=== PATIENT | female | born 2000 | race Two or more races ===

== ENCOUNTER 2020-09-17 20:55 | Emergency (ER) | payer MEDICAID ==
[~2020-09-17] VITALS: Ht 165.1 cm; Wt 77.1 kg
[2020-09-18] MEDS ORDERED: ACETAMINOPHEN 325 MG TAB PO ONE ×2 (00:30→00:45)
[2020-09-18 00:34] VITALS: BP 111/70
== END 2020-09-18 01:14 | disposition home or self-care (01) ==
LOC: ER 20:57
DX: H60.92 Unspecified otitis externa, left ear (principal); H61.22 Impacted cerumen, left ear

== ENCOUNTER 2021-10-16 14:26 | Emergency (ER) | payer MEDICAID ==
[~2021-10-16] VITALS: Ht 162.6 cm; Wt 77.1 kg
[2021-10-16] MEDS ORDERED: ONDANSETRON ODT 4 MG TAB PO ONE (15:15)
[2021-10-16] MEDS ORDERED: ACETAMINOPHEN/CODEINE#3 (300/30mg) TAB PO ONE (15:15)
[2021-10-16 17:54] VITALS: BP 121/79
[2021-10-16] MEDS ORDERED: ACE3T PO (18:24)
[2021-10-16] MEDS ORDERED: IBUP800T27 PO (18:24)
== END 2021-10-16 18:45 | disposition home or self-care (01) ==
LOC: ER 14:26
DX: S52.124A Nondisplaced fracture of head of right radius, initial encounter for closed fracture (principal); W01.0XXA Fall on same level from slipping, tripping and stumbling without subsequent striking against object, initial encounter; Y93.89 Activity, other specified; Y92.89 Other specified places as the place of occurrence of the external cause; Y99.8 Other external cause status
CPT/HCPCS: 29105; 73080; 73110; 99284; Q0162

== ENCOUNTER 2025-06-14 04:58 | Emergency (ER) | payer MEDICAID ==
[~2025-06-14] VITALS: Ht 162.6 cm; Wt 110.5 kg
[~2025-06-14 04:58] MED LIST: ACE3T PO; IBUP-1456 PO
[2025-06-14] MEDS ORDERED: ACET500T58 PO (05:25)
--- NOTE | 2025-06-14 05:26 | ED.PDOC ---
Musculoskeletal HPI Comments 25 year old female presents to ER with complaints of chest wall pain x 2 days. 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 Denies use of medications for current symptoms and states her pain is worse with movement and better with rest. Denies shortness of breath, n/v, skin changes or any further symptoms/complaints Chief Complaint: Upper Extremity Time Seen by MD: 05:07 Primary Care Provider: UNKNOWN Reviewed Notes: Nurses Notes, Medications, Allergies Allergies: Coded Allergies: NO KNOWN ALLERGIES (Unverified , 10/16/21) Home Meds Active Scripts Acetaminophen (Acetaminophen) 500 Mg Tab, 500 MG PO Q4HPRN, #30 TAB 0 Refills Prov:ABHAY HERMAN 06/14/25 Acetaminophen W/ Codeine (Tylenol W/Cod #3) 1 Tab Tb, 1 TAB PO QIDP, #10 TAB 0 Refills Prov:ABHAY HERMAN 10/16/21 Ibuprofen (Ibuprofen) 800 Mg Tab, 1 TAB PO TID PRN, #30 TAB 0 Refills Prov:ABHAY HERMAN 10/16/21 Information Source: Patient Mode of Arrival: Ambulatory Past Medical History PAST MEDICAL HISTORY: Denies Surgical History: Denies all surgeries NURSE STAFF History: Denies all NURSE STAFF Hx Family History Family History: Unknown Social History Smoker: Non-Smoker Alcohol: Denies ETOH Use Drugs: Denies Drug Use Lives In: Home Constitutional: denies: chills, diaphoresis, fatigue, fever, malaise, sweats, weakness, others EENTM: denies: blurred vision, double vision, ear bleeding, ear discharge, ear drainage, ear pain, ear ringing, eye pain, eye redness, hearing loss, mouth pain, mouth swelling, nasal discharge, nose bleeding, nose congestion, nose pain, photophobia, tearing, throat pain, throat swelling, voice changes, others Respiratory: denies: cough, hemoptysis, orthopnea, SOB at rest, shortness of breath, SOB with excertion, stridor, wheezing, others Cardiovascular: reports: others (As stated in HPI) Gastrointestinal: denies: abdomen distended, abdominal pain, blood streaked bowels, constipated, diarrhea, dysphagia, difficulty swallowing, hematemesis, melena, nausea, poor appetite, poor fluid intake, rectal bleeding, rectal pain, vomiting, others Genitourinary: denies: abnormal vagina bleeding, burning, dyspareunia, dysuria, flank pain, frequency, hematuria, incontinence, pain, , vagina discharge, urgency, others Neurological: denies: dizziness, fainting, headache, left sided numbness, left sided weakness, numbness, paresthesia, pre-existing deficit, right sided numbness, right sided weakness, seizure, speech problems, tingling, tremors, weakness, others Musculoskeletal: denies: back pain, gout, joint pain, joint swelling, muscle pain, muscle stiffness, neck pain, others Integumetry: denies: bruises, change in color, change in hair/nails, dryness, laceration, lesions, lumps, rash, wounds, others Allergic/Immunocompromised: denies: Difficulty Healing, Frequent Infections, Hives, Itching, others Hematologic/Lymphatic: denies: anemia, blood clots, easy bleeding, easy bruising, swollen glands, others Endocrine: denies: excessive hunger, excessive sweating, excessive thirst, excessive urination, flushing, intolerance to cold, intolerance to heat, unexplained weight gain, unexplained weight loss, others Psychiatric: denies: anxiety, bipolar disorder, depression, hopeless, panic disorder, schizophrenia, sleepless, suicidal, others Physical Exam General Appearance: No Apparent Distress, Obese HEENT: PERRL/EOMI Neck: Full Range of Motion, Non-Tender, Normal Respiratory: Lungs Clear, No Accessory Muscle Use, No Respiratory Distress, Normal Breath Sounds, Other (TTP to right upper chest wall noted. No skin changes noted) Cardiovascular: No Murmur, No Gallop, Regular Rate/Rhythm Breast Exam: Deferred Gastrointestinal: NOT DONE Genitalia: Deferred Pelvic: Deferred Rectal: Deferred Extremities: Normal capillary refill, Normal range of motion Neurologic: Alert, No Motor Deficits, Normal Affect, Normal Mood, No Sensory Deficits Cerebellar Function: Normal Reflexes: Normal Skin: Dry, Normal Color, Warm Peripheral Pulses: 2+ Radial (R), 2+ Radial (L), 2+ Brachial (R), 2+ Brachial (L) Lymphatic: No Adenopathy Was a procedure done? Was a procedure done?: No Sedation Sedation?: No EKG EKG : Pulse Rate (adult): 62 [place]: Normal Cardiac Rhythm: NSR (SR) Block: None Hypertrophy: None ST: Normal Differential Diagnosis EXT Differential Diagnosis: Fracture, Neurovascular injury, Other (PR) X-Ray, Labs, Meds, VS Vital Signs Date Time Temp Pulse Resp B/P (MAP) Pulse Ox O2 Delivery O2 Flow Rate FiO2 06/14/25 05:29 98.9 64 20 114/71 (85) 98 98.9 06/14/25 05:29 64 06/14/25 05:26 62 06/14/25 05:11 62 06/14/25 05:00 98.9 64 20 114/71 98 98.9 PATIENT: MARGARITA MOREIRACT: [id number]: [id number] : 2000 LOC: ER ROOM / BED: / AGE / SEX: 25 / F ADM STATUS: REG ER SERVICE 5 ORDERING PHYSICIAN: ABHAY HERMAN PROCEDURE(s): CXR2 - CHEST TWO VIEWS ROUTINE REASON: right chest wall pain ORDER NUMBER(s): [id number], ACCESSION NUMBER(s): [id number] CHEST RADIOGRAPH Indication: right chest wall pain Technique: Frontal and lateral view of the chest was obtained Comparison: None FINDINGS: Lines and Tubes: None Lungs: Clear Pleura: No effusion. No pneumothorax. Cardiomediastinal contours: Unremarkable Bones: Unremarkable IMPRESSION: No evidence of acute disease. ATED BY: FARHAT MCCULLOUGH MD DICTATED DATE/TIME: 06/14/25540 SIGNED BY: FARHAT MCCULLOUGH MD SIGNED DATE/TIME: 06/14/25540 CC: waiver signed EKG reviewed Chest x-ray reviewed Patient had improvement in symptoms and in no distress prior to discharge Advised on rest/no strenuous activity Advised to follow up with PCP in 1-2 days Patient verbalized understanding and agreeable with current plan of care Advised to return to ER immediately if symptoms worsen Images Reviewed?: Images reviewed and evaluated by me Time of 1ST Reevaluation: 05:07 Reevaluation 1ST: N/A Patient Education/Counseling: Diagnosis, Treatment, Prognosis, Need For Follow Up Family Education/Counseling: No Family Present Departure 1 Departure Time of Disposition: 05:23 Impression: Primary Impression: Muscle strain of chest wall Qualified Codes: S29.011A - Strain of muscle and tendon of front wall of thorax, initial encounter Disposition: HOME / SELF CARE / HOMELESS Condition: Stable e-Prescriptions Acetaminophen (Acetaminophen) 500 Mg Tab 500 MG PO Q4HPRN, #30 TAB 0 Refills Prov: ABHAY HERMAN 06/14/25 Discharged With: Self Critical Care Note Critical Care Time?: No Stability Stability form required: No Heart Score Heart Score: Heart Score Response (Comments) Value History N/A 0 EKG N/A 0 Age N/A 0 Risk Factors N/A 0 Troponin N/A 0 Total 0 ABHAY HERMAN Jun 14, 2025 05:26
[2025-06-14 05:29] VITALS: BP 114/71; PULSE 64; RESP 20; TEMP 98.9; O2SAT 98
--- NOTE | 2025-06-14 05:30 | ECG ---
[facility] Test Date: 2025-06-14 Test Time: 05:11:54 Pat Name: ABIODUN MOREIRA Department: ED Room: Gender: F [employer]oth Stock Sorter: ROSIE : 2000 Requested By: EMERGENCY EMERGENCY Order Number: [id number] Reading MD: Isai Horton Measurements Intervals [place] Rate: 62 P: 41 OH: 125 QRS: 48 QRSD: 102 T: 18 QT: 405 QTc: 412 Interpretive Statements Sinus rhythm Electronically Signed On 06-14-2025 17:51:03 PST by Isai Horton Please click the below link to view image of tracing.
--- NOTE | 2025-06-14 05:43 | DVH ---
CHEST RADIOGRAPH Indication: right chest wall pain Technique: Frontal and lateral view of the chest was obtained Comparison: None FINDINGS: Lines and Tubes: None Lungs: Clear Pleura: No effusion. No pneumothorax. Cardiomediastinal contours: Unremarkable Bones: Unremarkable IMPRESSION: No evidence of acute disease.
== END 2025-06-14 06:35 | disposition home or self-care (01) ==
LOC: ER 04:58
DX: S29.011A Strain of muscle and tendon of front wall of thorax, initial encounter (principal); X50.0XXA Overexertion from strenuous movement or load, initial encounter; Y93.89 Activity, other specified; Y92.89 Other specified places as the place of occurrence of the external cause; Y99.8 Other external cause status
CPT/HCPCS: 71046; 93005